=== PATIENT | male | born 1940 | race Caucasian/White ===

== ENCOUNTER 2019-06-16 19:55 | Emergency (ER) | payer OTHER ==
[~2019-06-16] VITALS: Ht 188 cm; Wt 110.9 kg
[2019-06-16 20:02] VITALS: Ht 188 cm; Wt 110.9 kg
[2019-06-16] MEDS ORDERED: DM MEDS (20:03)
[2019-06-16] MEDS ORDERED: DEPRESSION MEDS (20:03)
[2019-06-16] MEDS ORDERED: PROSTATE MEDS (20:03)
[2019-06-16 22:30] VITALS: BP 153/94
== END 2019-06-16 22:30 | disposition home or self-care (01) ==
LOC: D.ER 19:55
DX: S90.122A Contusion of left lesser toe(s) without damage to nail, initial encounter (principal); W22.8XXA Striking against or struck by other objects, initial encounter; Y93.9 Activity, unspecified; Y92.9 Unspecified place or not applicable; E11.9 Type 2 diabetes mellitus without complications; S91.115A Laceration without foreign body of left lesser toe(s) without damage to nail, initial encounter

== ENCOUNTER 2019-12-31 13:45 | Emergency (ER) | payer OTHER ==
[2019-06-16 20:02] VITALS: Ht 188 cm; Wt 113.6 kg
[~2019-12-31] VITALS: Ht 188 cm; Wt 113.6 kg
[~2019-12-31 13:45] MED LIST: DEPRESSION MEDS; DM MEDS; PROSTATE MEDS
[2019-12-31] MEDS ORDERED: CLINDAMYCIN HC300 MG PO (15:23)
[2019-12-31] MEDS ORDERED: TORADOL10 MG PO (15:23)
[2019-12-31 15:40] VITALS: BP 160/78
== END 2019-12-31 15:40 | disposition home or self-care (01) ==
LOC: D.ER 13:45
DX: S92.425A Nondisplaced fracture of distal phalanx of left great toe, initial encounter for closed fracture (principal); S92.513A Displaced fracture of proximal phalanx of unspecified lesser toe(s), initial encounter for closed fracture; E11.9 Type 2 diabetes mellitus without complications; Z79.84 Long term (current) use of oral hypoglycemic drugs; W19.XXXA Unspecified fall, initial encounter; Y93.9 Activity, unspecified; Y92.9 Unspecified place or not applicable; M79.675 Pain in left toe(s)